=== PATIENT | female | born 1955 | race Caucasian/White ===

== ENCOUNTER 2023-05-24 13:34 | Emergency (ER) | payer MEDICARE, OTHER, SELFPAY ==
[2023-05-24] VITALS (11 sets, daily range): BP systolic 140–183; BP diastolic 62–81; PULSE 58–78; RESP 16–18; TEMP 36.7–36.8; O2SAT 95–100; BMI 37.5
[2023-05-24 14:29] LABS: INR 1.2 (0.9-1.3); Prothrombin Time 13.9 SECONDS (10.1-12.7)
[2023-05-24 14:31] LABS: Add Manual Diff / Slide Review NO; Basophils Absolute Auto 0 /uL (0-100); Basophils Percent Auto 0.6 % (0-2); Eosinophils Absolute Auto 0 /uL (0-450); Hematocrit 25.8 % (36-46); Hemoglobin 8.4 g/dL (12.0-16.0); Lymphocytes Absolute Auto 400 /uL (1100-4500); Lymphocytes Percent Auto 17.7 % (25-40); Mean Corpuscular HGB Conc 32.7 % (30-36); Mean Corpuscular Hemoglobin 25.2 PG (26-34); Mean Corpuscular Volume 77.1 fL (80-100); Monocytes Absolute Auto 300 /uL (0-900); Monocytes Percent Auto 13.1 % (3-14); Neutrophils Absolute Auto 1600 /uL (1500-7000); Neutrophils Percent Auto 66.6 % (50-75); PTT Partial Thromboplastin Tim 24 SECONDS (26-36); Platelet Count 192 X10^3/uL (150-400); Red Blood Cell Count 3.35 X10^6/uL (4.0-5.2); White Blood Cell Count 2.5 X10^3/uL (4.5-11.0)
[2023-05-24 14:34] LABS: Alanine Aminotransferase 26 IU/L (<35); Albumin 4.1 g/dL (3.5-5.0); Albumin Globulin Ratio 1.3 (1.0-2.8); Alkaline Phosphatase 60 U/L (38-126); Aspartate Aminotransferase 24 IU/L (14-36); BUN Creatinine Ratio 17.3 (6-22); Bilirubin Total 0.3 mg/dL (0.2-1.3); Blood Urea Nitrogen 9 mg/dL (7-17); Calcium 9.3 mg/dL (8.4-10.2); Carbon Dioxide 26 mmol/L (22-32); Chloride 93 mmol/L (98-107); Estimated Glomerular Filt Rate > 60 mL/min (>60); Globulin 3.1 g/dL (1.7-4.1); Glucose 163 mg/dL (80-110); HEMOLYSIS < 15 (0-50); Potassium 4.1 mmol/L (3.4-5.1); Sodium 126 mmol/L (137-145); Total Protein 7.2 g/dL (6.3-8.2)
--- NOTE | 2023-05-24 16:34 | PC.NURSE ---
Patient asked for urine sample. Patient informs RN that she only has a tumble of urine daily due to previous cheemo and radiation and bladder shrinking according to patient. Patient states that she has chronic diarrhea due to this where she eliminates water. This RN informed provider. Provider okayed and declined for this RN to try to get sample through catheter.
--- NOTE | 2023-05-24 16:36 | ED_ITS ---
HPI - Recheck/Abnormal Lab/Rx General Chief Complaint: Recheck/Abnormal Lab/Rx Stated Complaint: low White B count ref [facility] Time Seen by Provider: 05/24/23 14:18 Source: patient, family, RN notes reviewed and old records reviewed Mode of arrival: Ambulatory Limitations: no limitations History of Present Illness HPI narrative: 67-year-old female with history of breast cancer followed by uterine cancer, hypertension, dyslipidemia, diabetes and anxiety who had chemotherapy followed by radiation in 2021. Patient and her just moved here from [place]. They drove across the country this last week. Patient presents today because she was told that she should have her labs rechecked. Before she left they had labs including a CBC and electrolytes her white count was noted to be in the 2 range, hemoglobin was in the 8 range, her sodium at that time was in the 130s. Patient and family were told to follow-up as she had been low but not quite that low in the past by her primary care they had also seen there her oncologist before she left would recommend the same thing. She has not had transfusions or iron infusions any time recently. She states she is supposed to get a PET scan every 6 months and gets labs every 4-6 months. Patient and her are trying to establish with primary care locally as well oncology. They have called the local oncology office on [facility] but have not been able to get an appointment. They went to an urgent care yesterday and were told to come to the ER. Patient denies fevers or chills no new chest pain, she is had some chronic shortness of breath but no increase or worsening, she is chronic back pain which has not changed. No new numbness tingling or weakness. No difficulty with gait. She has diarrhea intermittent with constipation which they relate to her radiation treatment. No black or bloody stools. She pees very small amounts but this is not a new change no urgency dysuria or frequency otherwise noted. She has not had any fevers. No cough cold or congestive symptoms. Related Data Allergies Allergy/AdvReac Type Severity Reaction Status Date / Time No Known Drug Allergies Allergy Verified 05/24/23 13:49 Review of Systems Review of Systems ROS Unobtainable: All systems reviewed & are unremarkable except as noted in HPI and below Patient History Social History Smoking Status: Never smoker Smoking Status: Never smoker Substance Use Type: does not use Exam Narrative Exam Narrative: GENERAL: Alert and oriented x three, female in no acute distress HEENT: Head normocephalic, atraumatic, EOMI, pupils reactive, face symmetric, moist mucous membranes NECK: Supple, full range of motion CARDIOVASCULAR: Regular rate and rhythm without murmurs, rubs or gallops. No JVD. No edema bilateral lower extremities. RESPIRATORY: Breath sounds equal bilaterally, no wheezes rales or rhonchi. No tachypnea or accessory muscle use. ABDOMEN: Soft, nontender. Normoactive bowel sounds all 4 quadrants. No guarding or rebound, rigidity, no mass : No CVA tenderness EXTREMITIES: Normal range of motion, no clubbing or edema. Neurovascularly intact NEUROLOGICAL: Cranial nerves II through XII grossly intact. Moving all extremities SKIN: Warm, dry, no petechiae, no rashes or lesions. Initial Vital Signs Initial Vital Signs: Vital Signs Temperature 98.3 F 05/24/23 13:49 Pulse Rate 64 05/24/23 13:49 Respiratory Rate 18 05/24/23 13:49 Blood Pressure 183/81 H 05/24/23 13:49 Pulse Oximetry 100 05/24/23 13:49 Oxygen Delivery Method Room Air 05/24/23 13:49 Course Orders Ordered: ED Orders 05/24/23 14:15 CBC Auto Diff [Complete Blood Count AUTO DIFF] Stat CMP [Comprehensive Metabolic Panel] Stat PTT Partial Thromboplastin Jose Stat Prothrombin Time INR Stat Vital Signs Vital signs: Vital Signs - 8 hr 05/24/23 13:49 05/24/23 14:18 05/24/23 14:19 Temperature 98.3 F 98.1 F Pulse Rate 64 61 60 Respiratory Rate 18 16 Blood Pressure 183/81 H 140/62 Pulse Oximetry 100 98 99 Oxygen Delivery Method Room Air Room Air 05/24/23 14:30 05/24/23 14:34 05/24/23 14:34 Temperature Pulse Rate 60 61 Respiratory Rate Blood Pressure 162/77 H Pulse Oximetry 97 97 Oxygen Delivery Method 05/24/23 15:00 05/24/23 15:00 05/24/23 15:30 Temperature Pulse Rate 60 Respiratory Rate Blood Pressure 151/67 H 143/70 H Pulse Oximetry 97 Oxygen Delivery Method 05/24/23 15:30 05/24/23 16:00 05/24/23 16:00 Temperature Pulse Rate 58 L 72 Respiratory Rate Blood Pressure 179/76 H Pulse Oximetry 97 96 Oxygen Delivery Method 05/24/23 16:30 05/24/23 16:30 05/24/23 17:00 Temperature Pulse Rate 58 L Respiratory Rate Blood Pressure 145/66 H 160/74 H Pulse Oximetry 99 Oxygen Delivery Method 05/24/23 17:00 05/24/23 17:42 Temperature 98.2 F Pulse Rate 59 L 78 Respiratory Rate 18 16 Blood Pressure 160/74 H Pulse Oximetry 98 95 Oxygen Delivery Method Room Air MDM - Recheck/Abnormal Lab/Rx Lab Data 05/24/23 14:15 05/24/23 14:15 Labs: Lab Results 05/24/23 Range/Units 14:15 WBC 2.5 L (4.5-11.0) X10^3/uL RBC 3.35 L (4.0-5.2) X10^6/uL Hgb 8.4 L (12.0-16.0) g/dL Hct 25.8 L (36-46) % MCV 77.1 L (80-100) fL MCH 25.2 L (26-34) PG MCHC 32.7 (30-36) % RDW 19.0 H (11.6-14.8) % Plt Count 192 (150-400) X10^3/uL Neut % (Auto) 66.6 (50-75) % Lymph % (Auto) 17.7 L (25-40) % [place] % (Auto) 13.1 (3-14) % Eos % (Auto) 2.0 (2-4) % Baso % (Auto) 0.6 (0-2) % Neut # (Auto) 1600 (1913-5685) /uL Lymph # (Auto) 400 L (2899-1069) /uL [place] # (Auto) 300 (0-900) /uL Eos # (Auto) 0 (0-450) /uL Baso # (Auto) 0 (0-100) /uL PT 13.9 H (10.1-12.7) SECONDS INR 1.2 (0.9-1.3) APTT 24 L (26-36) SECONDS Sodium 126 L (137-145) mmol/L Potassium 4.1 (3.4-5.1) mmol/L Chloride 93 L (98-107) mmol/L Carbon Dioxide 26 (22-32) mmol/L BUN 9 (7-17) mg/dL Creatinine 0.52 (0.52-1.04) mg/dL Estimated GFR > 60 (>60) mL/min BUN/Creatinine Ratio 17.3 (6-22) Glucose 163 H (80-110) mg/dL Calcium 9.3 (8.4-10.2) mg/dL Total Bilirubin 0.3 (0.2-1.3) mg/dL AST 24 (14-36) IU/L ALT 26 (<35) IU/L Alkaline Phosphatase 60 (38-126) U/L Total Protein 7.2 (6.3-8.2) g/dL Albumin 4.1 (3.5-5.0) g/dL Globulin 3.1 (1.7-4.1) g/dL Albumin/Globulin Ratio 1.3 (1.0-2.8) MDM Narrative Medical decision making narrative: Pleasant 67-year-old female who per her report is at her baseline but has saw her physician before she moved here from [place] on the 12 of May. Was told her white count and hemoglobin were low and have them rechecked when she got to [place]. They have tried to reach out to oncology locally but have been unsuccessful so far. Patient white count appears stable with a leukopenia at 2 and hemoglobin 8 they have labs which do not show any acute changes they were not able to show me the sodium but states it was in the 130s, she is 125 today. This is a new change but she is so far been asymptomatic. Discussed some continued fluids increase salt intake reviewed her medications unlikely to be a source and asked her to return if she is having any worsening symptoms are not able to follow up for recheck of her sodium level in the next week she does not have primary care yet. Did give her options for primary care locally as well as Oncology. We do not currently have oncology at our facility but there is options at [facility] and they are already trying to reach at [facility]. I did ask if they can reach out to the oncologist in [place] and they state they were told they can not talk to them because they do not live there anymore even though they moved a week ago. Reviewed return precautions, signs and symptoms to watch out for all questions answered patient and family feel comfortable returning home at this time Discharge Plan Departure Patient Disposition: Home Clinical Impression: Anemia, Leukopenia, Hyponatremia Activity Restrictions/Additional Instructions: Please call to set up follow up with primary care, the car that you were given has all the new primary care physicians that are in the area. I would also recommend that you call back to Oncology to set up primary care, contact is also for the group at [facility] as well. There is a copy of your labs including. Your hemoglobin is low but appears consistent with your labs last week as well as her white blood cell count is low but appears consistent. Your sodium is low at 126, this should be rechecked in the next week to make sure it is not continuing to drop. Please return for headaches, altered mental status, chest pain, shortness of breath increasing swelling, nausea vomiting, altered mental status, difficulty with walking or ambulation or other new or concerning changes. Referrals: Ruben Kaur MD [Physician] - Miscellaneous,MD Rodney [Primary Care Provider] - Jackie Redmond MD [Physician] - Sharon Mello MD [Physician] - Stand Alone Forms: Patient Portal/API
== END 2023-05-24 17:43 | disposition home or self-care (01) ==
PROVIDERS: Emergency Provider Emergency Medicine
DX: D64.9 Anemia, unspecified (principal); D72.819 Decreased white blood cell count, unspecified; E87.1 Hypo-osmolality and hyponatremia; R19.7 Diarrhea, unspecified; R79.89 Other specified abnormal findings of blood chemistry
CPT/HCPCS: 36415; 80053; 85025; 85610; 85730; 99283

== ENCOUNTER → 2023-05-29 13:48 | Outpatient (CLI) | payer MEDICARE, OTHER, SELFPAY ==
[2023-05-29 15:13] LABS: Appearance Urine UA CLOUDY; Bilirubin Urine UA NEGATIVE (NEGATIVE); Color Urine UA YELLOW; Glucose Urine UA NEGATIVE (Negative); Ketones Urine UA TRACE (NEGATIVE); Leukocyte Esterase Urine UA 3+ (NEGATIVE); Nitrite Urine UA NEGATIVE (Negative); Occult Blood Urine UA 3+ (Negative); Protein Urine UA 3+ (Negative); Specific Gravity Urine UA 1.015 (1.000-1.035)
[2023-05-29 15:36] LABS: pH Urine UA 6.5 (4.5-8.0)
[2023-05-29 15:47] LABS: Bacteria Urine Many (>30); Culture Indicated Urine Specimen Cultured; RBC Urine 10-30/HPF (0-5/HPF); Squamous Epithelial Cell Urine 1-5 /HPF (0-5/HPF); WBC Urine >100/HPF (0-5/HPF)
== END ==
PROVIDERS: Referring Provider Family Medicine; Visit Provider Family Medicine
DX: N39.0 Urinary tract infection, site not specified (principal)
CPT/HCPCS: 81001; 87077; 87086; 87186

== ENCOUNTER → 2023-06-02 12:42 | Outpatient (CLI) | payer MEDICARE, OTHER, SELFPAY ==
[2023-06-02 14:37] LABS: Add Manual Diff / Slide Review NO; Basophils Absolute Auto 0 /uL (0-100); Basophils Percent Auto 0.7 % (0-2); Eosinophils Absolute Auto 100 /uL (0-450); Eosinophils Percent Auto 2.6 % (2-4); Hematocrit 26.8 % (36-46); Hemoglobin 8.7 g/dL (12.0-16.0); Lymphocytes Absolute Auto 600 /uL (1100-4500); Lymphocytes Percent Auto 24.1 % (25-40); Mean Corpuscular HGB Conc 32.5 % (30-36); Mean Corpuscular Volume 76.9 fL (80-100); Monocytes Absolute Auto 300 /uL (0-900); Monocytes Percent Auto 12.9 % (3-14); Neutrophils Absolute Auto 1500 /uL (1500-7000); Neutrophils Percent Auto 59.7 % (50-75); Platelet Count 203 X10^3/uL (150-400); Red Blood Cell Count 3.48 X10^6/uL (4.0-5.2); Red Cell Distribution Width 18.8 % (11.6-14.8); White Blood Cell Count 2.4 X10^3/uL (4.5-11.0)
[2023-06-02 14:43] LABS: Hemoglobin A1C% w Est Avg Glu 7.2 % (4.0-6.0)
[2023-06-02 15:23] LABS: Alanine Aminotransferase 19 IU/L (<35); Albumin 4.1 g/dL (3.5-5.0); Albumin Globulin Ratio 1.2 (1.0-2.8); Alkaline Phosphatase 56 U/L (38-126); Aspartate Aminotransferase 20 IU/L (14-36); BUN Creatinine Ratio 17.1 (6-22); Bilirubin Total 0.1 mg/dL (0.2-1.3); Blood Urea Nitrogen 12 mg/dL (7-17); Carbon Dioxide 22 mmol/L (22-32); Chloride 96 mmol/L (98-107); Estimated Glomerular Filt Rate > 60 mL/min (>60); Globulin 3.3 g/dL (1.7-4.1); Glucose 138 mg/dL (80-110); HEMOLYSIS < 15 (0-50); Potassium 4.4 mmol/L (3.4-5.1); Sodium 128 mmol/L (137-145); Total Protein 7.4 g/dL (6.3-8.2)
[2023-06-02 17:40] LABS: Appearance Urine UA CLEAR; Bilirubin Urine UA NEGATIVE (NEGATIVE); Color Urine UA YELLOW; Glucose Urine UA NEGATIVE (Negative); Ketones Urine UA NEGATIVE (NEGATIVE); Leukocyte Esterase Urine UA TRACE (NEGATIVE); Nitrite Urine UA NEGATIVE (Negative); Occult Blood Urine UA NEGATIVE (Negative); Protein Urine UA NEGATIVE (Negative); Specific Gravity Urine UA 1.015 (1.000-1.035); Urobilinogen Urine UA 0.2 E.U./dL (0.2)
[2023-06-02 17:54] LABS: Bacteria Urine Occasional (0-1); Culture Indicated Urine Specimen Cultured; RBC Urine 0-1/HPF (0-5/HPF); Squamous Epithelial Cell Urine 0-1 /HPF (0-5/HPF); Uric Acid Crystals Urine Few; WBC Urine 1-5/HPF (0-5/HPF)
== END ==
PROVIDERS: PCP Family Medicine; Referring Provider Family Medicine; Visit Provider Family Medicine
DX: E11.9 Type 2 diabetes mellitus without complications (principal); Z79.4 Long term (current) use of insulin; N30.00 Acute cystitis without hematuria; E87.1 Hypo-osmolality and hyponatremia; D70.1 Agranulocytosis secondary to cancer chemotherapy; T45.1X5A Adverse effect of antineoplastic and immunosuppressive drugs, initial encounter; D64.9 Anemia, unspecified
CPT/HCPCS: 36415; 80053; 81001; 83036; 85025; 87086

== ENCOUNTER → 2023-09-02 13:05 | Outpatient (CLI) | payer MEDICARE, OTHER, SELFPAY ==
[2023-09-02 14:00] LABS: Add Manual Diff / Slide Review NO; Basophils Absolute Auto 0 /uL (0-100); Basophils Percent Auto 0.9 % (0-2); Eosinophils Absolute Auto 0 /uL (0-450); Eosinophils Percent Auto 1.6 % (2-4); Hematocrit 32.4 % (36-46); Lymphocytes Absolute Auto 700 /uL (1100-4500); Lymphocytes Percent Auto 22.7 % (25-40); Mean Corpuscular HGB Conc 33.9 % (30-36); Mean Corpuscular Volume 85.5 fL (80-100); Monocytes Absolute Auto 300 /uL (0-900); Monocytes Percent Auto 9.4 % (3-14); Neutrophils Absolute Auto 1900 /uL (1500-7000); Neutrophils Percent Auto 65.4 % (50-75); Platelet Count 174 X10^3/uL (150-400); Red Blood Cell Count 3.79 X10^6/uL (4.0-5.2); White Blood Cell Count 2.9 X10^3/uL (4.5-11.0)
[2023-09-02 14:16] LABS: HEMOLYSIS < 15 (0-50); Iron 63 ug/dL (37-170)
[2023-09-02 14:17] LABS: Hemoglobin A1C% w Est Avg Glu 6.2 % (4.0-6.0)
[2023-09-02 14:21] LABS: Alanine Aminotransferase 18 IU/L (<35); Albumin 4.2 g/dL (3.5-5.0); Albumin Globulin Ratio 1.2 (1.0-2.8); Alkaline Phosphatase 56 U/L (38-126); Aspartate Aminotransferase 25 IU/L (14-36); BUN Creatinine Ratio 20.4 (6-22); Bilirubin Total 0.5 mg/dL (0.2-1.3); Blood Urea Nitrogen 10 mg/dL (7-17); Calcium 9.1 mg/dL (8.4-10.2); Carbon Dioxide 28 mmol/L (22-32); Chloride 90 mmol/L (98-107); Estimated Glomerular Filt Rate > 60 mL/min (>60); Globulin 3.4 g/dL (1.7-4.1); Glucose 130 mg/dL (80-110); HEMOLYSIS < 15 (0-50); Potassium 4.3 mmol/L (3.4-5.1); Sodium 125 mmol/L (137-145); Total Protein 7.6 g/dL (6.3-8.2)
[2023-09-02 14:28] LABS: Percent Iron Saturation 19 % (15-50); Total Iron Binding Capacity 340 ug/dL (265-497); Transferrin 282 mg/dL (206-381)
== END ==
LOC: LAB 13:05
PROVIDERS: PCP Family Medicine; Referring Provider Family Medicine; Visit Provider Family Medicine
DX: E11.9 Type 2 diabetes mellitus without complications (principal); E78.5 Hyperlipidemia, unspecified; D64.9 Anemia, unspecified
CPT/HCPCS: 36415; 80053; 83036; 83540; 83550; 85025

== ENCOUNTER → 2023-10-27 09:51 | Outpatient (CLI) | payer MEDICARE, OTHER, SELFPAY ==
[2023-10-27 11:13] LABS: Hemoglobin A1C% w Est Avg Glu 6.7 % (4.0-6.0)
[2023-10-27 11:20] LABS: Add Manual Diff / Slide Review NO; Basophils Absolute Auto 0 /uL (0-100); Basophils Percent Auto 0.3 % (0-2); Eosinophils Absolute Auto 0 /uL (0-450); Eosinophils Percent Auto 1.3 % (2-4); Hematocrit 31.5 % (36-46); Hemoglobin 10.6 g/dL (12.0-16.0); Lymphocytes Absolute Auto 600 /uL (1100-4500); Lymphocytes Percent Auto 19.8 % (25-40); Mean Corpuscular HGB Conc 33.6 % (30-36); Mean Corpuscular Hemoglobin 29.7 PG (26-34); Mean Corpuscular Volume 88.3 fL (80-100); Monocytes Absolute Auto 200 /uL (0-900); Monocytes Percent Auto 7.8 % (3-14); Neutrophils Absolute Auto 2100 /uL (1500-7000); Neutrophils Percent Auto 70.8 % (50-75); Platelet Count 183 X10^3/uL (150-400); Red Blood Cell Count 3.57 X10^6/uL (4.0-5.2); Red Cell Distribution Width 15.5 % (11.6-14.8); White Blood Cell Count 2.9 X10^3/uL (4.5-11.0)
[2023-10-27 11:58] LABS: Alanine Aminotransferase 17 IU/L (<35); Albumin Globulin Ratio 1.3 (1.0-2.8); Alkaline Phosphatase 65 U/L (38-126); Aspartate Aminotransferase 21 IU/L (14-36); BUN Creatinine Ratio 25.5 (6-22); Bilirubin Total 0.5 mg/dL (0.2-1.3); Blood Urea Nitrogen 14 mg/dL (7-17); Calcium 9.6 mg/dL (8.4-10.2); Carbon Dioxide 32 mmol/L (22-32); Chloride 97 mmol/L (98-107); Estimated Glomerular Filt Rate > 60 mL/min (>60); Glucose 152 mg/dL (80-110); HEMOLYSIS < 15 (0-50); Potassium 4.6 mmol/L (3.4-5.1); Sodium 133 mmol/L (137-145)
[2023-10-27 11:59] LABS: HEMOLYSIS < 15 (0-50); Iron 52 ug/dL (37-170)
[2023-10-27 12:09] LABS: Percent Iron Saturation 15 % (15-50); Total Iron Binding Capacity 354 ug/dL (265-497); Transferrin 304 mg/dL (206-381)
[2023-10-27 12:25] LABS: Cancer Antigen 125 20.3 U/mL (0-35)
[2023-10-27 12:42] LABS: Vitamin B12 454 pg/mL (239-931)
== END ==
PROVIDERS: PCP Family Medicine; Referring Provider Obstetrics & Gynecology; Visit Provider Obstetrics & Gynecology
DX: Z85.42 Personal history of malignant neoplasm of other parts of uterus (principal); Z86.2 Personal history of diseases of the blood and blood-forming organs and certain disorders involving the immune mechanism; I10 Essential (primary) hypertension; D70.9 Neutropenia, unspecified; E11.319 Type 2 diabetes mellitus with unspecified diabetic retinopathy without macular edema; E78.5 Hyperlipidemia, unspecified; E11.9 Type 2 diabetes mellitus without complications; Z85.3 Personal history of malignant neoplasm of breast
CPT/HCPCS: 36415; 80053; 82607; 83036; 83540; 83550; 85025; 86304

== ENCOUNTER → 2023-12-23 16:49 | Outpatient (CLI) | payer MEDICARE, OTHER, SELFPAY ==
[2023-12-23 18:51] LABS: Appearance Urine UA SL CLOUDY; Bilirubin Urine UA NEGATIVE (NEGATIVE); Color Urine UA YELLOW; Glucose Urine UA NEGATIVE (Negative); Ketones Urine UA NEGATIVE (NEGATIVE); Leukocyte Esterase Urine UA 2+ (NEGATIVE); Nitrite Urine UA POSITIVE (Negative); Occult Blood Urine UA 1+ (Negative); Protein Urine UA NEGATIVE (Negative); Specific Gravity Urine UA 1.015 (1.000-1.035); Urobilinogen Urine UA 0.2 E.U./dL (0.2)
[2023-12-23 19:46] LABS: RBC Urine 1-5/HPF (0-5/HPF); Urine Volume 10mL (spun); WBC Urine 30-100/HPF (0-5/HPF)
[2023-12-23 19:47] LABS: Bacteria Urine Many (>30); Culture Indicated Urine Specimen Cultured; Squamous Epithelial Cell Urine None Seen (0-5/HPF)
== END ==
PROVIDERS: PCP Family Medicine; Referring Provider Family Medicine; Visit Provider Family Medicine
DX: R39.15 Urgency of urination (principal)
CPT/HCPCS: 81001; 87077; 87086

== ENCOUNTER → 2023-12-29 15:20 | Outpatient (CLI) | payer MEDICARE, OTHER, SELFPAY ==
[2023-12-29 16:04] LABS: Add Manual Diff / Slide Review NO; Basophils Absolute Auto 0 /uL (0-100); Basophils Percent Auto 0.5 % (0-2); Eosinophils Absolute Auto 100 /uL (0-450); Hematocrit 31.8 % (36-46); Hemoglobin 10.7 g/dL (12.0-16.0); Lymphocytes Absolute Auto 700 /uL (1100-4500); Mean Corpuscular HGB Conc 33.7 % (30-36); Mean Corpuscular Hemoglobin 29.3 PG (26-34); Mean Corpuscular Volume 86.8 fL (80-100); Monocytes Absolute Auto 200 /uL (0-900); Monocytes Percent Auto 7.2 % (3-14); Neutrophils Absolute Auto 2100 /uL (1500-7000); Neutrophils Percent Auto 67.3 % (50-75); Platelet Count 184 X10^3/uL (150-400); Red Blood Cell Count 3.66 X10^6/uL (4.0-5.2); Red Cell Distribution Width 16.5 % (11.6-14.8)
[2023-12-29 16:06] LABS: Hemoglobin A1C% w Est Avg Glu 6.7 % (4.0-6.0)
[2023-12-29 16:37] LABS: Alanine Aminotransferase 14 IU/L (<35); Albumin 4.3 g/dL (3.5-5.0); Albumin Globulin Ratio 1.4 (1.0-2.8); Alkaline Phosphatase 64 U/L (38-126); Aspartate Aminotransferase 22 IU/L (14-36); BUN Creatinine Ratio 14.3 (6-22); Bilirubin Total 0.4 mg/dL (0.2-1.3); Blood Urea Nitrogen 9 mg/dL (7-17); Carbon Dioxide 28 mmol/L (22-32); Chloride 95 mmol/L (98-107); Estimated Glomerular Filt Rate > 60 mL/min (>60); Globulin 3.1 g/dL (1.7-4.1); Glucose 105 mg/dL (80-110); HEMOLYSIS < 15 (0-50); Iron 67 ug/dL (37-170); Potassium 4.8 mmol/L (3.4-5.1); Sodium 127 mmol/L (137-145); Total Protein 7.4 g/dL (6.3-8.2)
[2023-12-29 16:50] LABS: Percent Iron Saturation 19 % (15-50); Total Iron Binding Capacity 360 ug/dL (265-497); Transferrin 282 mg/dL (206-381)
[2023-12-29 17:26] LABS: Vitamin B12 300 pg/mL (239-931)
== END ==
PROVIDERS: PCP Family Medicine; Referring Provider Family Medicine; Visit Provider Family Medicine
DX: E11.9 Type 2 diabetes mellitus without complications (principal); I10 Essential (primary) hypertension; D70.9 Neutropenia, unspecified; D64.9 Anemia, unspecified
CPT/HCPCS: 36415; 80053; 82607; 83036; 83540; 83550; 85025

== ENCOUNTER → 2024-02-20 15:01 | Outpatient (CLI) | payer MEDICARE, OTHER, SELFPAY ==
--- NOTE | 2024-02-20 15:03 | DI.RAD.S_ITS ---
PROCEDURE: XR HIP W PEL IF DONE LT 2V INDICATIONS: Lt Hip pain TECHNIQUE: AP pelvis with lateral view(s) of the left hip(s). COMPARISON: None. FINDINGS: Bones: No fractures or dislocations. Pelvic ring appears intact. No suspicious bony lesions. Mild bilateral hip degenerative change.. Soft tissues: The visualized bowel gas pattern is normal. No suspicious soft tissue calcifications. IMPRESSION: Mild bilateral hip degenerative change. No acute bony abnormality. Dictated by: Victoriano Young M.D. on 02/20/2024 at 20:27 Approved by: Victoriano Young M.D. on 02/20/2024 at 20:28
== END ==
PROVIDERS: PCP Family Medicine; Referring Provider Family Medicine; Visit Provider Family Medicine
DX: M25.552 Pain in left hip (principal)
CPT/HCPCS: 73502

== ENCOUNTER → 2024-03-02 12:06 | Outpatient (CLI) | payer MEDICARE, OTHER, SELFPAY ==
--- NOTE | 2024-03-02 12:08 | DI.MG.S_ITS ---
BILATERAL DIGITAL DIAGNOSTIC MAMMOGRAM 3D/2D POST LUMPECTOMY: 03/02/2024 CLINICAL: History of right breast cancer and high grade endometrial adenocarcinoma. Referred for follow up of hypermetabolic left axillary level 2 lymph node seen on outside PET-CT 12/18/23. Comparison is made to exams dated: 11/07/2022 mammogram, 10/23/2021 mammogram, 02/07/2021 mammogram - outside location, 12/18/2023 PET, and 08/28/2023 PET - [facility]. There are scattered areas of fibroglandular density in both breasts (category b / 25%-50% glandular tissue). There are stable post surgical changes in the right breast from prior lumpectomy. Additional mammographic views of the left axilla demonstrate no mammographic abnormality. No other significant masses, calcifications, or other findings are seen in either breast. IMPRESSION: INCOMPLETE: NEEDS ADDITIONAL IMAGING EVALUATION Status post right breast lumpectomy. No mammographic evidence of malignancy. An ultrasound is recommended for further evaluation of the left axilla and is scheduled to immediately follow this examination. No mammographic evidence of malignancy. Recommend further evaluation with targeted breast ultrasound, which will immediately follow this exam. This exam was interpreted at Station ID: [id number]. NOTE: For mammograms, a report in lay terms will be sent to the patient. Approximately 15% of breast malignancies will not be visualized mammographically. In the management of a palpable breast mass, a negative mammogram must not discourage biopsy of a clinically suspicious lesion. Electronically Signed By: Desiree Santos M.D., Ph.D. eb/:03/02/2024 14:06:35 ACR BI-RADS Category 0: Incomplete [id number]
--- NOTE | 2024-03-02 12:08 | DI.US.S_ITS ---
ULTRASOUND OF LEFT AXILLA: 03/02/2024 CLINICAL: Referred for evaluation of previously seen hypermetabolic left axillary level 2 lymph node on outside PET-CT 12/18/2023. Comparison is made to exams dated: 03/02/2024 mammogram - [facility], 12/18/2023 PET, 08/28/2023 PET - [facility], 11/07/2022 mammogram, 10/23/2021 mammogram, and 10/23/2021 ultrasound - outside location. Color flow and real-time ultrasound of the left axilla were performed. There are morphologically normal lymph nodes with normal reniform shape and fatty hilum seen in the left axilla. No definite ultrasound correlate for the level II axillary lymph node seen on PET-CT 12/18/2023. IMPRESSION: BENIGN Morphologically normal left axillary lymph nodes. No definite ultrasound correlate for the previously FDG avid level II axillary lymph node seen on PET-CT 12/18/2023. Findings are benign. No sonographic evidence of malignancy. A 1 year screening mammogram is recommended. Clinical follow-up is also recommended. Findings and recommendations were conveyed to the patient during today's evaluation. This exam was interpreted at Station ID: [id number]. Electronically Signed By: Desiree Santos M.D., Ph.D. eb/:03/02/2024 16:17:38 letter sent: Clinical Evaluation Ultrasound BI-RADS: 2 Benign
== END ==
LOC: MAMMO 12:07
PROVIDERS: PCP Family Medicine; Referring Provider Family Medicine; Visit Provider Family Medicine
DX: R92.323 Mammographic fibroglandular density, bilateral breasts (principal); R92.2 Inconclusive mammogram; I89.9 Noninfective disorder of lymphatic vessels and lymph nodes, unspecified; Z85.3 Personal history of malignant neoplasm of breast
CPT/HCPCS: 76642; 77066; G0279

== ENCOUNTER → 2024-06-15 12:52 | Outpatient (CLI) | payer MEDICARE, OTHER, SELFPAY ==
[2024-06-15 13:28] LABS: Add Manual Diff / Slide Review NO; Basophils Absolute Auto 0 /uL (0-100); Basophils Percent Auto 0.6 % (0-2); Eosinophils Absolute Auto 100 /uL (0-450); Eosinophils Percent Auto 2.5 % (2-4); Hematocrit 33.2 % (36-46); Hemoglobin 10.6 g/dL (12.0-16.0); Lymphocytes Absolute Auto 700 /uL (1100-4500); Lymphocytes Percent Auto 24.9 % (25-40); Mean Corpuscular HGB Conc 32.1 % (30-36); Mean Corpuscular Hemoglobin 27.3 PG (26-34); Mean Corpuscular Volume 85.3 fL (80-100); Monocytes Absolute Auto 300 /uL (0-900); Monocytes Percent Auto 9.4 % (3-14); Neutrophils Absolute Auto 1800 /uL (1500-7000); Neutrophils Percent Auto 62.6 % (50-75); Platelet Count 212 X10^3/uL (150-400); Red Blood Cell Count 3.89 X10^6/uL (4.0-5.2); Red Cell Distribution Width 17.3 % (11.6-14.8); White Blood Cell Count 2.9 X10^3/uL (4.5-11.0)
[2024-06-15 13:45] LABS: Hemoglobin A1C% w Est Avg Glu 7.2 % (4.0-6.0)
[2024-06-15 13:59] LABS: Alanine Aminotransferase 23 IU/L (<35); Albumin 4.2 g/dL (3.5-5.0); Albumin Globulin Ratio 1.3 (1.0-2.8); Alkaline Phosphatase 79 U/L (38-126); Aspartate Aminotransferase 25 IU/L (14-36); BUN Creatinine Ratio 13.8 (6-22); Bilirubin Total 0.6 mg/dL (0.2-1.3); Blood Urea Nitrogen 9 mg/dL (7-17); Calcium 9.4 mg/dL (8.4-10.2); Carbon Dioxide 25 mmol/L (22-32); Chloride 97 mmol/L (98-107); Cholesterol 182 mg/dL (140-199); Estimated Glomerular Filt Rate > 60 mL/min (>60); Globulin 3.2 g/dL (1.7-4.1); Glucose 139 mg/dL (80-110); HDL Cholesterol 95 mg/dL (40-60); HEMOLYSIS < 15 (0-50); LDL Cholesterol Calculated 69 mg/dL (<100); Potassium 4.3 mmol/L (3.4-5.1); Sodium 131 mmol/L (137-145); Total Protein 7.4 g/dL (6.3-8.2); Triglycerides 89 mg/dL (35-150)
== END ==
PROVIDERS: PCP Family Medicine; Referring Provider Family Medicine; Visit Provider Family Medicine
DX: I10 Essential (primary) hypertension (principal); E11.9 Type 2 diabetes mellitus without complications; D64.9 Anemia, unspecified; Z79.4 Long term (current) use of insulin; E78.5 Hyperlipidemia, unspecified
CPT/HCPCS: 36415; 80053; 80061; 83036; 85025

== ENCOUNTER → 2024-10-07 10:32 | Outpatient (CLI) | payer MEDICARE, BC, SELFPAY | PROVIDERS: PCP Family Medicine; Visit Provider Family Medicine | DX: R35.0 Frequency of micturition (principal) | CPT/HCPCS: 87086 ==

== ENCOUNTER → 2024-12-31 12:35 | Outpatient (CLI) | payer MEDICARE, BC, SELFPAY ==
[2024-12-31 13:27] LABS: Add Manual Diff / Slide Review NO; Basophils Absolute Auto 0 /uL (0-100); Basophils Percent Auto 0.9 % (0-2); Eosinophils Absolute Auto 100 /uL (0-450); Eosinophils Percent Auto 2.3 % (2-4); Hematocrit 31.3 % (36-46); Lymphocytes Absolute Auto 800 /uL (1100-4500); Lymphocytes Percent Auto 26.3 % (25-40); Mean Corpuscular HGB Conc 31.9 % (30-36); Mean Corpuscular Hemoglobin 25.1 PG (26-34); Mean Corpuscular Volume 78.8 fL (80-100); Monocytes Absolute Auto 300 /uL (0-900); Monocytes Percent Auto 11.2 % (3-14); Neutrophils Absolute Auto 1800 /uL (1500-7000); Neutrophils Percent Auto 59.3 % (50-75); Platelet Count 253 X10^3/uL (150-400); Red Blood Cell Count 3.98 X10^6/uL (4.0-5.2); Red Cell Distribution Width 18.6 % (11.6-14.8)
[2024-12-31 13:40] LABS: Hemoglobin A1C% w Est Avg Glu 6.3 % (4.0-6.0)
[2024-12-31 13:44] LABS: Alanine Aminotransferase 17 IU/L (<35); Albumin 4.4 g/dL (3.5-5.0); Albumin Globulin Ratio 1.4 (1.0-2.8); Alkaline Phosphatase 62 U/L (38-126); Aspartate Aminotransferase 21 IU/L (14-36); BUN Creatinine Ratio 18.2 (6-22); Bilirubin Total 0.6 mg/dL (0.2-1.3); Blood Urea Nitrogen 10 mg/dL (7-17); Calcium 9.4 mg/dL (8.4-10.2); Carbon Dioxide 25 mmol/L (22-32); Chloride 99 mmol/L (98-107); Estimated Glomerular Filt Rate > 60 mL/min (>60); Globulin 3.2 g/dL (1.7-4.1); Glucose 113 mg/dL (70-99); HEMOLYSIS < 15 (0-50); Iron 43 ug/dL (37-170); Potassium 4.2 mmol/L (3.4-5.1); Sodium 134 mmol/L (137-145); Total Protein 7.6 g/dL (6.3-8.2)
[2024-12-31 13:56] LABS: Percent Iron Saturation 11 % (15-50); Total Iron Binding Capacity 388 ug/dL (265-497); Transferrin 338 mg/dL (206-381)
[2024-12-31 14:15] LABS: TSH w/ Reflex to FT4 1.84 uIU/mL (0.47-4.68)
[2024-12-31 14:34] LABS: Vitamin B12 284 pg/mL (239-931)
== END ==
PROVIDERS: PCP Family Medicine; Referring Provider Family Medicine; Visit Provider Family Medicine
DX: D64.9 Anemia, unspecified (principal); E11.9 Type 2 diabetes mellitus without complications; I10 Essential (primary) hypertension; D70.9 Neutropenia, unspecified; F32.A Depression, unspecified; Z85.42 Personal history of malignant neoplasm of other parts of uterus
CPT/HCPCS: 36415; 80053; 82607; 83036; 83540; 83550; 84443; 85025

== ENCOUNTER 2025-02-13 18:52 | Emergency (ER) | payer MEDICARE, BC, SELFPAY ==
[2025-02-13] VITALS (18 sets, daily range): BP systolic 150–207; BP diastolic 78–87; PULSE 60–86; RESP 20; TEMP 36.9; O2SAT 93–97; BMI 39.6
--- NOTE | 2025-02-13 18:40 | DI.CT.S_ITS ---
PROCEDURE: CT HEAD/BRAIN WO CON INDICATIONS: Seizure/syncope/fall TECHNIQUE: Noncontrast 4.5 mm thick angled axial sections acquired from the foramen magnum to the vertex, with coronal and sagittal reformats. For radiation dose reduction, the following was used: automated exposure control, adjustment of mA and/or kV according to patient size. COMPARISON: None. FINDINGS: Image quality: Diagnostic. CSF spaces: Basal cisterns are patent. No extra-axial fluid collections. Ventricles are normal in size and shape. Brain: No midline shift. No intracranial mass effect or hemorrhage. Wang- white matter interface is normal. Skull and face: Calvarium and visualized facial bones are intact, without suspicious lesions. Sinuses: Visualized sinuses and mastoids are clear. IMPRESSION: No acute intracranial pathology. Dictated by: Ramesh Yin M.D. on 02/13/2025 at 19:29 Approved by: Ramesh Yin M.D. on 02/13/2025 at 19:32
[2025-02-13 18:56] LABS: Add Manual Diff / Slide Review NO; Hematocrit 32.2 % (36-46); Hemoglobin 10.3 g/dL (12.0-16.0); Lymphocytes Absolute Auto 800 /uL (1100-4500); Mean Corpuscular HGB Conc 32.0 % (30-36); Mean Corpuscular Hemoglobin 25.3 PG (26-34); Mean Corpuscular Volume 79.1 fL (80-100); Platelet Count 197 X10^3/uL (150-400)
[2025-02-13 19:08] LABS: Alanine Aminotransferase 25 IU/L (<35); Albumin 4.4 g/dL (3.5-5.0); Albumin Globulin Ratio 1.2 (1.0-2.8); Alkaline Phosphatase 72 U/L (38-126); Blood Urea Nitrogen 7 mg/dL (7-17); Calcium 9.2 mg/dL (8.4-10.2); Carbon Dioxide 23 mmol/L (22-32); Chloride 98 mmol/L (98-107); Estimated Glomerular Filt Rate > 60 mL/min (>60); Globulin 3.8 g/dL (1.7-4.1); Glucose 132 mg/dL (70-99); HEMOLYSIS 28 (0-50); Lipase 51 U/L (23-300); Magnesium 1.2 mg/dL (1.6-2.3); Potassium 4.0 mmol/L (3.4-5.1); Sodium 131 mmol/L (137-145); Total Protein 8.2 g/dL (6.3-8.2)
[2025-02-13 19:17] LABS: NT-proBNP (BNP-Adult 18+) 159 pg/mL (<125)
[2025-02-13 19:20] LABS: Troponin I < 0.012 ng/mL (0.01-0.034)
--- NOTE | 2025-02-13 22:30 | ED_ITS ---
HPI - Seizure General Chief Complaint: Seizure Stated Complaint: seizures Time Seen by Provider: 02/13/25 18:55 Source: patient and EMS Mode of arrival: EMS History of Present Illness HPI Narrative: 69-year-old woman with a history of seizure disorder diabetes, hypertension had a witnessed seizure at home. Medics were called initially found her with a GCS of 10 could not follow up commands. Blood pressure is 110/90 heart rate was 120. She has continued to rapidly improve over time of transport. She does note that she could not sleep last night and she perhaps forgot to take her medications Related Data Home Medications ?Medication ?Instructions ?Recorded ?Confirmed blood sugar diagnostic 05/30/23 01/07/25 Previous Rx's ?Medication ?Instructions ?Recorded blood-glucose,outpatient coder,cont #1 ea 11/27/23 (Dexcom G7 Lining Feller Blindstitch) metformin 500 mg tablet 1,000 mg (2 x 500 mg) PO BID #360 06/21/24 tabs fluocinonide 0.05 % topical gel 1 applic topical BID # 15 grams 06/22/24 blood-glucose sensor (Dexcom G7 #1 ea 09/20/24 Sensor device) atorvastatin 10 mg tablet 10 mg PO DAILY #90 tabs 11/27 0 insulin syr/ndl U100 half radha 0.3 #100 ea 12/24/24 mL 31 gauge x 5/16 pen needle, diabetic 32 gauge x #100 ea 01/06/25 1/4 clonazepam 1 mg tablet 1 mg PO BID PRN anxity #180 tabs 01/07/25 fluoxetine 20 mg tablet 20 mg PO DAILY #90 tabs 12/26 10/19 trazodone 50 mg tablet 50 mg PO BEDTIME PRN insomni a #90 01/07/25 tabs cyanocobalamin (vitamin B-12) 1,000 mcg IM QMONTH #1 m L 01/11/25 1,000 mcg/mL injection solution esomeprazole magnesium 40 mg 40 mg PO DAILY #90 caps 0 02/01/25 capsule,delayed release insulin aspart U-100 100 unit/mL 5 unit (0.05 mL) SUBC UT BID #15 mL 02/01/25 (3 mL) subcutaneous pen (Novolog FlexPen U-100 Insulin aspart) insulin glargine 100 unit/mL (3 20 unit (0.2 mL) SUBCU T BID #15 mL 02/01/25 mL) subcutaneous pen (Lantus Solostar U-100 Insulin) losartan 50 mg tablet 50 mg PO DAILY #90 tabs 03/21 Allergies Allergy/AdvReac Type Severity Reaction Status Date / Time diphenhydramine (From AdvReac Mild Verified 02/13/25 18:45 Benadryl) Review of Systems Review of Systems Narrative: Pertinent positive and negative findings as per HPI Patient History Medical History Anemia (~2022) Hypertension Neutropenia Lumbar spondylosis Lichen planus Alopecia Actinic keratosis Chronic cough Allergies Depression Anxiety Headache Benign familial tremor Shoulder pain Lordosis History of ankylosing spondylitis Arthritis Chronic back pain Cervical spine disease History of hematologic disorder History of hemochromatosis Diabetic retinopathy Cataract Fibroids History of urinary incontinence Fecal incontinence Cystic fibrosis Radiation colitis Pancreatic cyst Hemorrhoid GERD (gastroesophageal reflux disease) Peripheral vascular disease Hyperlipidemia Skin cancer Chronic lower back pain Type 2 diabetes mellitus History of uterine cancer History of breast cancer Urinary tract infection Surgical History History of repair of rotator cuff History of ectopic History of section History of tonsillectomy and adenoidectomy History of hysterectomy Family History Father Mental health problem Mother History of heart disease Brother Mental health problem Grandfather Cancer Grandmother Cancer Diabetes mellitus Family/Other Asthma History of tonsillectomy and adenoidectomy Social History Smoking Status: Never smoker Smoking Status: Never smoker Alcohol type: beer Exam Initial Vital Signs Initial Vital Signs: Vital Signs Pulse Rate 85 02/13/25 18:32 Pulse Oximetry 97 02/13/25 18:32 General: in no acute distress. HEENT: Moist mucous membranes, normal sclera with reactive pupils, Respiratory: Lungs are clear to auscultation, no wheezing no rales no rhonchi. Full and symmetrical air movement Cardiac: Regular rate and rhythm no murmurs Abdomen: Soft, nontender, no rebound or guarding, no flank pain Skin: Warm and dry, no significant bruising Neurologic: A still slightly postictal but rapidly improving. Hyperreflexic with 3+ reflexes patellas, she does not have any clonus Extremities: No trauma, well perfused Psych: Cooperative, Course Orders Ordered: ED Orders 02/13/25 18:40 CT head/brain wo con Stat Urinalysis and Microscopic Stat 02/13/25 18:45 Complete Blood Count AUTO DIFF Stat Comprehensive Metabolic Panel Stat Lipase Stat Magnesium Stat NT-proBNP (BNP-Adult 18+) Stat Prolactin Stat Troponin I Stat Vital Signs Vital signs: Vital Signs - 8 hr 02/13/25 18:32 02/13/25 18:33 02/13/25 18:33 Temperature Pulse Rate 85 84 Respiratory Rate Blood Pressure 150/87 H Pulse Oximetry 97 93 Oxygen Delivery Method 02/13/25 18:46 02/13/25 19:00 02/13/25 19:01 Temperature 98.5 F Pulse Rate 86 67 Respiratory Rate 20 Blood Pressure 150/87 H 207/87 H Pulse Oximetry 96 95 Oxygen Delivery Method Room Air 02/13/25 19:01 02/13/25 19:03 02/13/25 19:03 Temperature Pulse Rate 69 73 Respiratory Rate Blood Pressure 200/84 H Pulse Oximetry 94 93 Oxygen Delivery Method 02/13/25 19:30 02/13/25 20:00 02/13/25 20:30 Temperature Pulse Rate 66 63 60 Respiratory Rate Blood Pressure Pulse Oximetry 97 95 95 Oxygen Delivery Method 02/13/25 21:00 02/13/25 21:18 02/13/25 21:18 Temperature Pulse Rate 65 65 Respiratory Rate Blood Pressure 201/85 H Pulse Oximetry 97 94 Oxygen Delivery Method 02/13/25 21:30 02/13/25 21:30 Temperature Pulse Rate 60 Respiratory Rate Blood Pressure 183/79 H Pulse Oximetry 95 Oxygen Delivery Method MDM - Seizure Lab Data 02/13/25 18:45 02/13/25 18:45 Labs: Lab Results 02/13/25 Range/Units 18:45 WBC 3.1 L (4.5-11.0) X10^3/uL RBC 4.07 (4.0-5.2) X10^6/uL Hgb 10.3 L (12.0-16.0) g/dL Hct 32.2 L (36-46) % MCV 79.1 L (80-100) fL MCH 25.3 L (26-34) PG MCHC 32.0 (30-36) % RDW 18.9 H (11.6-14.8) % Plt Count 197 (150-400) X10^3/uL Neut % (Auto) 61.8 (50-75) % Lymph % (Auto) 24.5 L (25-40) % [place] % (Auto) 10.9 (3-14) % Eos % (Auto) 2.0 (2-4) % Baso % (Auto) 0.8 (0-2) % Neut # (Auto) 1900 (6110-9009) /uL Lymph # (Auto) 800 L (3828-9306) /uL [place] # (Auto) 300 (0-900) /uL Eos # (Auto) 100 (0-450) /uL Baso # (Auto) 0 (0-100) /uL Sodium 131 L (137-145) mmol/L Potassium 4.0 (3.4-5.1) mmol/L Chloride 98 (98-107) mmol/L Carbon Dioxide 23 (22-32) mmol/L BUN 7 (7-17) mg/dL Creatinine 0.56 (0.52-1.04) mg/dL Estimated GFR > 60 (>60) mL/min BUN/Creatinine Ratio 12.5 (6-22) Glucose 132 H (70-99) mg/dL Calcium 9.2 (8.4-10.2) mg/dL Magnesium 1.2 L (1.6-2.3) mg/dL Total Bilirubin 0.5 (0.2-1.3) mg/dL AST 31 (14-36) IU/L ALT 25 (<35) IU/L Alkaline Phosphatase 72 (38-126) U/L Troponin I < 0.012 (0.01-0.034) ng/mL NT-Pro-B Natriuret Pep 159 H (<125) pg/mL Total Protein 8.2 (6.3-8.2) g/dL Albumin 4.4 (3.5-5.0) g/dL Globulin 3.8 (1.7-4.1) g/dL Albumin/Globulin Ratio 1.2 (1.0-2.8) Lipase 51 (23-300) U/L Prolactin 52.6 H (3.0-18.6) ng/mL MDM Narrative Medical decision making narrative: CC: Witnessed seizure Complicating co-morbidities: 1 seizure 2 years ago felt to be related to accidental trazodone overdose. It does not look like she has been prescribed medication for seizures but she does use a mg of clonazepam 3 times a day for anxiety She notes that she stayed up most of the night last night watching Netflix. Data collected from: patient, Medical records reviewed: Primary care notes are reviewed Differential considered: Seizure, medicine withdrawal, hypoglycemia Exam documented above, pertinent findings include: Patient was somewhat postictal but clearing rapidly. Lab Test results independently reviewed as above. Pertinent findings: CBC shows white count at 3.1 hemoglobin of 10.3 platelets at 197, these are all close to her baseline no changes Chemistries show normal renal function. Magnesium is low at 1.2 Troponin is undetectable BNP is not significantly elevated Prolactin is slightly elevated at 52.6 indicating that this was in fact a seizure Imaging studies independently reviewed: CT scan of the head is unremarkable Treatments: 2 g IV magnesium Discussion: 69-year-old woman with now 2nd seizure of her life 2 years apart. Postictal recovering nicely, elevated prolactin level. Magnesium was replaced. Certainly could be that the lack of sleep last night and a low magnesium contributed to the overall seizure activity. On further questioning, she had fairly significant diarrhea Friday through of last week and that can explain the low magnesium level. At this point she does seem to be back to her baseline. There was no indication for additional workup or hospitalization. We will recommend that she follow up with her primary care physician and may benefit from outpatient neurologic consultation and EEG to see what additional recommendations may be. Meantime she is taking clonazepam 1 mg t.i.d. which is likely fairly adequate seizure prophylaxis until additional consultation can be obtained. She is safe for discharge and does have an appointment with Dr. Odom tomorrow previously scheduled. Discharge Plan Departure Patient Disposition: Home Clinical Impression: Seizure, Hypomagnesemia Instructions: DI for Seizure Disorder -- Adult Activity Restrictions/Additional Instructions: Thank you for coming in today It does look like you had a seizure based on your prolactin level. Your CT scan is reassuring, there was no bleeding in your brain no sign of infection or stroke. Your blood work actually looks fairly reassuring. Your magnesium levels were slightly low and I suspect that is from the diarrhea that you had last week. They were replaced today in the fact that the diarrhea has resolved is quite reassuring You are currently on clonazepam twice a day which can actually be a fairly effective antiseizure medication. I would recommend that you discuss today's visit with Dr. Odom when you see him tomorrow. He may want to have you follow up with the neurologist as an outpatient to discuss possibility of seizures and whether or not you need any additional treatment. If you find that you are getting worse or develop any new symptoms, please feel free to return to the emergency department for further evaluation. Prescriptions: No Action (DME) Dexcom G7 Lining Feller Blindstitch Misc See Rx Instructions .Route Qty: 1 2RF Rx Instructions: Use to test blood sugars continuously fluocinonide 0.05 % gel 1 applic topical BID Qty: 15 4RF (DME) Dexcom G7 Sensor Device See Rx Instructions .Route Qty: 1 0RF Rx Instructions: Use to test blood sugars continuously. Short term fill, awaiting mail order (DME) pen needle, diabetic 32 gauge x 1/4 needle See Rx Instructions .Route Qty: 100 2RF Rx Instructions: use to inject insulin bid insulin aspart U-100 [Novolog FlexPen U-100 Insulin] 100 unit/mL (3 mL) insulin pen 5 unit SUBCUT BID Qty: 15 12RF insulin glargine [Lantus Solostar U-100 Insulin] 100 unit/mL (3 mL) insulin pen 20 unit SUBCUT BID Qty: 15 4RF losartan 50 mg tablet 50 mg PO DAILY Qty: 90 3RF esomeprazole magnesium 40 mg capsule,delayed release(DR/EC) 40 mg PO DAILY Qty: 90 3RF metformin 500 mg tablet 1,000 mg PO BID Qty: 360 1RF (DME) blood sugar diagnostic Strip See Rx Instructions .Route Rx Instructions: As directed atorvastatin 10 mg tablet 10 mg PO DAILY Qty: 90 3RF (DME) BD Insulin Syringe (half unit) 0.3 mL 31 gauge x 5/16 syringe See Rx Instructions .Route Qty: 100 3RF Rx Instructions: Draw and inject insulin twice daily trazodone 50 mg tablet 50 mg PO BEDTIME PRN (Reason: insomnia) Qty: 90 1RF clonazepam 1 mg tablet 1 mg PO BID PRN (Reason: anxity) Qty: 180 3RF fluoxetine 20 mg tablet 20 mg PO DAILY Qty: 90 3RF cyanocobalamin (vitamin B-12) 1,000 mcg/mL solution 1,000 mcg IM QMONTH Qty: 1 2RF Rx Instructions: Monthly x 3 doses Referrals: Miki Odom DO [Primary Care Provider, [facility]] Stand Alone Forms: Patient Portal/API
[2025-02-13 22:38] LABS: Appearance Urine UA CLEAR; Bilirubin Urine UA NEGATIVE (NEGATIVE); Color Urine UA YELLOW; Glucose Urine UA NEGATIVE (Negative); Ketones Urine UA NEGATIVE (NEGATIVE); Leukocyte Esterase Urine UA NEGATIVE (NEGATIVE); Nitrite Urine UA NEGATIVE (Negative); Occult Blood Urine UA NEGATIVE (Negative); Protein Urine UA NEGATIVE (Negative); Specific Gravity Urine UA 1.010 (1.000-1.035); Urobilinogen Urine UA 0.2 E.U./dL (0.2)
[2025-02-13 22:39] LABS: pH Urine UA 6.0 (4.5-8.0)
[2025-02-13] MEDS: MAGNESIUM SULFATE 2 GM/50 ML PIGGYBACK IV (22:42)
[2025-02-13 22:45] LABS: Culture Indicated Urine Cult Not Indicated
== END 2025-02-13 23:44 | disposition home or self-care (01) ==
PROVIDERS: Emergency Provider Emergency Medicine; PCP Family Medicine
DX: G40.909 Epilepsy, unspecified, not intractable, without status epilepticus (principal); E83.42 Hypomagnesemia
CPT/HCPCS: 36415; 70450; 80053; 81001; 83690; 83735; 83880; 84146; 84484; 85025; 96365; 99284; J3475

== ENCOUNTER → 2025-04-08 13:59 | Outpatient (CLI) | payer MEDICARE, BC, SELFPAY | PROVIDERS: PCP Family Medicine; Visit Provider Family Medicine | DX: N30.00 Acute cystitis without hematuria (principal) | CPT/HCPCS: 87077; 87086; 87186 ==

== ENCOUNTER → 2025-05-03 11:21 | Outpatient (CLI) | payer MEDICARE, BC, SELFPAY ==
[2025-05-03 11:47] LABS: Add Manual Diff / Slide Review NO; Hematocrit 38.1 % (36-46); Hemoglobin 12.7 g/dL (12.0-16.0); Lymphocytes Absolute Auto 800 /uL (1100-4500); Mean Corpuscular HGB Conc 33.4 % (30-36); Mean Corpuscular Hemoglobin 30.4 PG (26-34); Mean Corpuscular Volume 90.9 fL (80-100); Platelet Count 200 X10^3/uL (150-400)
[2025-05-03 12:00] LABS: Hemoglobin A1C% w Est Avg Glu 6.1 % (4.0-6.0)
[2025-05-03 12:07] LABS: Anisocytosis 2+
[2025-05-03 13:25] LABS: HEMOLYSIS < 15 (0-50); Iron 81 ug/dL (37-170)
[2025-05-03 13:34] LABS: Alanine Aminotransferase 21 IU/L (<35); Albumin 4.6 g/dL (3.5-5.0); Albumin Globulin Ratio 1.4 (1.0-2.8); Alkaline Phosphatase 64 U/L (38-126); Blood Urea Nitrogen 13 mg/dL (7-17); Calcium 9.8 mg/dL (8.4-10.2); Carbon Dioxide 25 mmol/L (22-32); Chloride 96 mmol/L (98-107); Estimated Glomerular Filt Rate > 60 mL/min (>60); Globulin 3.2 g/dL (1.7-4.1); Glucose 136 mg/dL (70-99); HEMOLYSIS < 15 (0-50); Potassium 4.4 mmol/L (3.4-5.1); Sodium 134 mmol/L (137-145); Total Protein 7.8 g/dL (6.3-8.2)
[2025-05-03 13:40] LABS: Percent Iron Saturation 25 % (15-50); Total Iron Binding Capacity 330 ug/dL (265-497); Transferrin 273 mg/dL (206-381)
[2025-05-03 14:18] LABS: Vitamin B12 423 pg/mL (239-931)
== END ==
PROVIDERS: PCP Family Medicine; Referring Provider Family Medicine; Visit Provider Family Medicine
DX: D64.9 Anemia, unspecified (principal); E11.9 Type 2 diabetes mellitus without complications; Z79.4 Long term (current) use of insulin; E53.8 Deficiency of other specified B group vitamins; I10 Essential (primary) hypertension; Z86.2 Personal history of diseases of the blood and blood-forming organs and certain disorders involving the immune mechanism
CPT/HCPCS: 36415; 80053; 82607; 83036; 83540; 83550; 85025